=== PATIENT | female | born 1990 | race Hispanic/Latino ===

== ENCOUNTER 2025-03-25 08:42 | Emergency (ER) | payer BC ==
[~2025-03-25] VITALS: Ht 162.6 cm; Wt 79.4 kg
[2025-03-25] MEDS ORDERED: KETOROLAC TROMETHAMINE 30 MG/ML VIAL ONE (09:05)
[2025-03-25] MEDS: LORAZEPAM INJ 2 MG/ML VIAL IV ONE (09:07)
[2025-03-25] MEDS: KETOROLAC TROMETHAMINE 30 MG/ML VIAL IV STA (09:07)
[2025-03-25] MEDS: Morphine 4mg INJECTION 4 MG/ML INJ IV ONE (09:52)
[2025-03-25] MEDS ORDERED: CYCLOBENZAPRINE5 MG PO (10:28)
[2025-03-25] MEDS ORDERED: HYDROCODON-ACE1 EA11 PO (10:30)
[2025-03-25 10:40] VITALS: PULSE 65; RESP 17; TEMP 98.1; O2SAT 100
== END 2025-03-25 10:42 | disposition home or self-care (01) ==
LOC: FSED 08:59
DX: M54.50 Low back pain, unspecified (principal); R11.0 Nausea; Z87.442 Personal history of urinary calculi
CPT/HCPCS: 81003; 81025; 99284; J1885; J2060; J2270